=== PATIENT | female | born 1980 | race Caucasian/White ===

== ENCOUNTER 2017-03-28 09:27 | Emergency (ER) | payer OTHER ==
[~2017-03-28] VITALS: Ht 162.6 cm; Wt 80.0 kg
[~2017-03-28 09:27] MED LIST: BREX1TAB4 PO; GABA300C5 PO; HYDR1CAP30 PO; HYDR50CA PO; QUET5TAB PO
[2017-03-28] MEDS ORDERED: SODIUM CHLORIDE 0.9% FLUSH 10 ML FLUSH IVF PRN (09:45)
--- NOTE | 2017-03-28 10:10 | PD ---
HPI Chief Complaint: OD/ Ingestion Time Seen by Provider: 09:39 Travel History International Travel<30 days: No Contact w/Intl Traveler<30days: No Traveled to known affect area: No History of Present Illness HPI 37yo F with PMH of bipolar disorder and fibromyalgia presents to the ED after taking about 15 seroquel since yesterday at 10pm. Pt states that she wanted to sleep so kept taking the seroquel. Pt lives in [facility] and he roommate for EVAC because she seemed lethargic. EVAC gave 0.8mg of narcan with not much of a response but pt was awake and alert when she arrived in the ED. Pt denies any suicidal ideations. PFSH Past Medical History Anxiety: Yes Heart Rhythm Problems: No Cancer: No Cardiovascular Problems: No High Cholesterol: No Chest Pain: No Congestive Heart Failure: No Diabetes: No Diminished Hearing: No Fibromyalgia: Yes Gastrointestinal Disorders: Yes (ULCERATIVE COLITIS) GERD: Yes Genitourinary: Yes Hypertension: No Immune Disorder: No Implanted Vascular Access Dvce: No Musculoskeletal: Yes (HX OF FIBROMYLALGIA.) Neurologic: Yes Psychiatric: Yes Reproductive: No Respiratory: No Immunizations Current: Yes Seizures: Yes ?: Unknown LMP: 03/26/17 : 4 Para: 1 Miscarriage: 1 : 2 Past Surgical History Section: Yes Gynecologic Surgery: Yes (C SECTION) Other Surgery: Yes (CELLULITIS REMOVAL RIGHT HIP) Social History Alcohol Use: Yes (occasionally) Tobacco Use: Yes (1 ppd) Substance Use: No Allergies-Medications (Allergen,Severity, Reaction): Coded Allergies: *MDRO Multi-Drug Resistant Organism (Verified Allergy, Unknown, 09/27/16) MRSA 2013 MRSA arm wound 12/2014, finger 07/2015. Reported Meds & Prescriptions Reported Meds & Active Scripts Active Reported Benztropine Mesylate 2 Mg/2 Ml Vial 1 Mg PO BID Vistaril (Hydroxyzine Pamoate) 50 Mg Cap 100 Mg PO HS Vistaril (Hydroxyzine Pamoate) 50 Mg Cap 50 Mg PO TID Prazosin (Prazosin HCl) 2 Mg Cap 2 Mg PO HS Quetiapine (Quetiapine Fumarate) 50 Mg Tab 200 Mg PO HS Rexulti (Brexpiprazole) 2 Mg Tab 3 Mg PO DAILY Gabapentin 300 Mg Cap 600 Mg PO TID Review of Systems Except as stated in HPI: all other systems reviewed are Neg Physical Exam Narrative GENERAL: 37yo F not in distress. SKIN: Focused skin assessment warm/dry. HEAD: Atraumatic. Normocephalic. EYES: Pupils equal and round at 4mm bilaterally. No scleral icterus. No injection or drainage. ENT: No nasal bleeding or discharge. Mucous membranes pink and moist. NECK: Trachea midline. No JVD. CARDIOVASCULAR: Regular rate and rhythm. No murmur appreciated. RESPIRATORY: No accessory muscle use. Clear to auscultation. Breath sounds equal bilaterally. GASTROINTESTINAL: Abdomen soft, non-tender, nondistended. MUSCULOSKELETAL: No obvious deformities. No clubbing. No cyanosis. No edema. NEUROLOGICAL: Easily arousable but becomes sleepy. No obvious cranial nerve deficits. Motor grossly within normal limits. Sensations intact. Data Data Last Documented VS Vital Signs Date Time Temp Pulse Resp B/P Pulse Ox O2 Delivery O2 Flow Rate FiO2 03/28/17 18:13 95 18 119/83 99 Room Air Orders Electrocardiogram (03/28/17 09:39) Basic Metabolic Panel (Bmp) (03/28/17 09:39) Complete Blood Count With Diff (03/28/17 09:39) Prothrombin Time / Inr (Pt) (03/28/17 09:39) Act Partial Throm Time (Ptt) (03/28/17 09:39) Urinalysis - C+S If Indicated (03/28/17 09:39) Iv Access Insert/Monitor (03/28/17 09:39) Ecg Monitoring (03/28/17 09:39) Oximetry (03/28/17 09:39) Sodium Chloride 0.9% Flush (Ns Flush) (03/28/17 09:45) Drug Screen, Random Urine (03/28/17 09:39) Alcohol (Ethanol) (03/28/17 09:39) Salicylates (Aspirin) (03/28/17 09:39) Tylenol (Acetaminophen) (03/28/17 09:39) Call Poison Control (03/28/17 09:40) Hepatic Functional Panel (03/28/17 11:09) Bhcg Screen Qualitative (03/28/17 11:09) Electrocardiogram (03/28/17 ) Tylenol (Acetaminophen) (03/28/17 13:27) Salicylates (Aspirin) (03/28/17 13:27) Psych Screen (03/28/17 17:13) Labs Laboratory Tests Test 03/28/17 03/28/17 10:00 13:45 White Blood Count 13.1 TH/MM3 Red Blood Count 4.78 MIL/MM3 Hemoglobin 13.7 GM/DL Hematocrit 40.3 % Mean Corpuscular Volume 84.3 FL Mean Corpuscular Hemoglobin 28.6 PG Mean Corpuscular Hemoglobin 33.9 % Concent Red Cell Distribution Width 15.3 % Platelet Count 258 TH/MM3 Mean Platelet Volume 8.1 FL Neutrophils (%) (Auto) 74.8 % Lymphocytes (%) (Auto) 15.3 % Monocytes (%) (Auto) 7.4 % Eosinophils (%) (Auto) 2.1 % Basophils (%) (Auto) 0.4 % Neutrophils # (Auto) 9.8 TH/MM3 Lymphocytes # (Auto) 2.0 TH/MM3 Monocytes # (Auto) 1.0 TH/MM3 Eosinophils # (Auto) 0.3 TH/MM3 Basophils # (Auto) 0.1 TH/MM3 CBC Comment DIFF FINAL Differential Comment Prothrombin Time 10.0 SEC Prothromb Time International 0.9 RATIO Ratio Activated Partial 30.2 SEC Thromboplast Time Urine Color LIGHT-YELLOW Urine Turbidity CLEAR Urine pH 5.5 Urine Specific [place] 1.007 Urine Protein NEG mg/dL Urine Glucose (UA) NEG mg/dL Urine Ketones NEG mg/dL Urine Occult Blood NEG Urine Nitrite NEG Urine Bilirubin NEG Urine Urobilinogen LESS THAN 2.0 MG/DL Urine Leukocyte Esterase NEG Urine RBC LESS THAN 1 /hpf Urine WBC 1 /hpf Urine Squamous Epithelial 1 /hpf Cells Urine Bacteria RARE /hpf Urine Mucus FEW /lpf Microscopic Urinalysis Comment CULT NOT INDICATED Sodium Level 140 MEQ/L Potassium Level 4.2 MEQ/L Chloride Level 109 MEQ/L Carbon Dioxide Level 21.3 MEQ/L Anion Gap 10 MEQ/L Blood Urea Nitrogen 14 MG/DL Creatinine 0.92 MG/DL Estimat Glomerular Filtration 68 ML/MIN Rate Random Glucose 98 MG/DL Calcium Level 9.2 MG/DL Total Bilirubin 0.3 MG/DL Direct Bilirubin LESS THAN 0.1 MG/DL Indirect Bilirubin 0.2 MG/DL Aspartate Amino Transf 30 U/L (AST/SGOT) Alanine Aminotransferase 31 U/L (ALT/SGPT) Alkaline Phosphatase 88 U/L Total Protein 7.7 GM/DL Albumin 3.7 GM/DL Beta HCG, Qualitative LESS THAN 1 MIU/ML Salicylates Level 3.2 MG/DL 3.5 MG/DL Urine Opiates Screen NEG Acetaminophen Level LESS THAN 2.0 LESS THAN 2.0 MCG/ML MCG/ML Urine Barbiturates Screen NEG Urine Amphetamines Screen NEG Urine Benzodiazepines Screen NEG Urine Cocaine Screen NEG Urine Cannabinoids Screen NEG Ethyl Alcohol Level LESS THAN 3 MG/DL MDM Medical Decision Making Medical Screen Exam Complete: Yes Emergency Medical Condition: Yes Interpretation(s) EKG: NSR 99bpm. Normal axis. No ST segment elevation or depression. Narrow QRS. [id number]. LVH. TWI III. Repeat EKG: NSR 87bpm. Normal axis. QTc 420ms. Narrow QRS. Differential Diagnosis Overdose on seroquel vs. polysubstance abuse vs. bipolar disorder Narrative Course 37yo F here because she took about 15 pills of her seroquel since 10pm last night. Pt is sleepy but arousable and follows command. Labs reviewed, mild leukocytosis at 13.1. BMP unremarkable. Acetaminophen and alcohol negative. Salicylate 3.2. Utox negative. Poison control called and recommend adding LFTs and bHCG as well as repeat EKG. UA negative. negative. LFTs negative. Repeat acetaminophen less than 2.0. Repeat salicylate 3.5. Pt denies any suicidal ideation or homicidal ideation. However, states she has bipolar disorder and depression and sees things and talks to herself. Her behavior is a bit bizarre. Will get psych to evaluate her. Pt is medically clear for psych evaluation. Diagnosis Primary Impression: Overdose Qualified Code: T50.901A - Overdose, accidental or unintentional, initial encounter Andressa Mccord DO Mar 28, 2017 10:10
[2017-03-28 10:17] LABS: AUTOMATED NEUTROPHIL # 9.8 TH/MM3 (1.8-7.7); BASOPHIL # 0.1 TH/MM3 (0-0.2); BASOPHIL % 0.4 % (0.0-2.0); EOSINOPHIL # 0.3 TH/MM3 (0-0.4); EOSINOPHIL % 2.1 % (0.0-4.0); HEMATOCRIT 40.3 % (35.0-46.0); HEMO FLAGS DIFF FINAL; LYMPH % 15.3 % (9.0-44.0); MEAN CELL VOLUME 84.3 FL (80.0-100.0); MEAN CORPUSCULAR HEMOGLOBIN 28.6 PG (27.0-34.0); MEAN CORPUSCULAR HGB CONC 33.9 % (32.0-36.0); MONO % 7.4 % (0.0-8.0); NEUT % 74.8 % (16.0-70.0); PLATELET COUNT 258 TH/MM3 (150-450); RED BLOOD COUNT 4.78 MIL/MM3 (4.00-5.30); RED CELL DISTRIBUTION WIDTH 15.3 % (11.6-17.2); WHITE BLOOD COUNT 13.1 TH/MM3 (4.0-11.0)
[2017-03-28 10:36] LABS: BACTERIA, URINE RARE /hpf; BLOOD, URINE NEG (NEG); COMMENT (UR) CULT NOT INDICATED; CULTURE IF INDICATED CULT NOT INDICATED; GLUCOSE,URINE NEG (NEG); KETONE, URINE NEG (NEG); MUCUS URINE FEW /lpf (OCC); NITRITE,URINE NEG (NEG); PH, URINE 5.5 (5.0-8.5); SQUAMOUS EPITHELIAL CELL URINE 1 /hpf (0-5); URINE COLOR LIGHT-YELLOW (YELLW/STRAW)
[2017-03-28 10:38] LABS: APTT (PATIENT) 30.2 SEC (24.3-30.1); INTERNATIONAL NORMALIZED RATIO 0.9 RATIO
[2017-03-28 10:44] LABS: ACETAMINOPHEN LESS THAN 2.0 MCG/ML (10.0-30.0); ANION GAP 10 MEQ/L (5-15); BICARBONATE 21.3 MEQ/L (21.0-32.0); BLOOD UREA NITROGEN 14 MG/DL (7-18); CHLORIDE 109 MEQ/L (98-107); GLOMERULAR FILTRATION RATE 68 ML/MIN (>89); POTASSIUM 4.2 MEQ/L (3.5-5.1); SODIUM (NA) 140 MEQ/L (136-145)
[2017-03-28] MEDS ORDERED: VIST50CA PO ×2 (10:44)
[2017-03-28] MEDS ORDERED: BENZ1INJ2 PO (10:44)
[2017-03-28] MEDS ORDERED: PRAZ2CAP PO (10:44)
[2017-03-28 10:59] LABS: AMPHETAMINE, URINE NEG (NEG); BARBITURATES, URINE NEG (NEG); COCAINE, URINE NEG (NEG)
[2017-03-28 11:30] VITALS: BP 111/75; PULSE 72; O2SAT 100
[2017-03-28 11:40] VITALS: O2SAT 100
[2017-03-28 12:23] LABS: ALKALINE PHOSPHATASE 88 U/L (45-117); TOTAL BILIRUBIN ADULT 0.3 MG/DL (0.2-1.0)
[2017-03-28 12:24] LABS: BHCG SCREEN QUALITATIVE LESS THAN 1 MIU/ML (0-5)
[2017-03-28 12:27] LABS: ALT (GPT) 31 U/L (10-53); AST (GOT) 30 U/L (15-37); INDIRECT BILIRUBIN 0.2 MG/DL (0.0-0.8)
[2017-03-28 14:39] VITALS: BP 117/76; PULSE 82; RESP 16; O2SAT 100
[2017-03-28 16:27] VITALS: BP 115/75; PULSE 87; RESP 16; O2SAT 97
--- NOTE | 2017-03-28 16:54 | EKG ---
Date Performed: 03/28/2017 Time Performed: 14:07:18 PTAGE: 37 years EKG: Sinus rhythm NORMAL ECG PREVIOUS TRACING : 03/28/2017 10.42 No significant change from previous tracing noted. DOCTOR: Raj Fernández Interpretating Date/Time 03/28/2017 16:50:04
--- NOTE | 2017-03-28 17:14 | EKG ---
Date Performed: 03/28/2017 Time Performed: 10:42:08 PTAGE: 37 years EKG: Sinus rhythm VOLTAGE CRITERIA FOR LVH ABNORMAL ECG PREVIOUS TRACING : 05/10/1993 06.13 Compared to previous tracing. nonspecific ST abnormality is no longer evident, minimal voltage criteria for LVH is now present. DOCTOR: Raj Fernández Interpretating Date/Time 03/28/2017 17:09:09
[2017-03-28 18:13] VITALS: BP 119/83; PULSE 84; PULSE 95; RESP 18; O2SAT 98; O2SAT 99
== END 2017-03-28 21:47 | disposition home or self-care (01) ==
LOC: NEPE 09:27 → NEPJ 21:47
DX: T43.594A Poisoning by other antipsychotics and neuroleptics, undetermined, initial encounter (principal); R94.31 Abnormal electrocardiogram [ECG] [EKG]; M79.7 Fibromyalgia; F31.9 Bipolar disorder, unspecified; F17.210 Nicotine dependence, cigarettes, uncomplicated; Y92.009 Unspecified place in unspecified non-institutional (private) residence as the place of occurrence of the external cause
CPT/HCPCS: 80048; 80076; 80307; 81001; 84703; 85025; 85610; 85730; 93005; 99284

== ENCOUNTER 2017-05-20 18:05 | Emergency (ER) | payer OTHER ==
[~2017-05-20] VITALS: Ht 162.6 cm; Wt 60.0 kg
[~2017-05-20 18:05] MED LIST changes: +BENZ1INJ2 PO; -HYDR1CAP30 PO; -HYDR50CA PO; +PRAZ2CAP PO; +VIST50CA PO
[2017-05-20 18:14] VITALS: BP 152/92; PULSE 114; RESP 16; TEMP 98.1; O2SAT 95
[2017-05-20 18:21] VITALS: BP 124/76; PULSE 117; RESP 16; O2SAT 95
--- NOTE | 2017-05-20 18:36 | PD ---
HPI Chief Complaint: Altered Mental Status Time Seen by Provider: 18:15 Travel History International Travel<30 days: No Contact w/Intl Traveler<30days: No Traveled to known affect area: No History of Present Illness HPI The patient was seen and examined in the presence of the nurse. This patient is sometimes homeless and sometimes living with a friend. She went to a friend' s to do laundry and that friend called paramedics when she noticed the patient was acting drowsy and sedated and confused. Patient has history of bipolar and fibromyalgia. She was here in March with an intentional overdose of Seroquel. She has limited ability to provide history given her altered mental status. She does deny any overdose or suicidal intent. Severity is moderate. Duration unknown. No alleviating factors. PFSH Past Medical History Anxiety: Yes Heart Rhythm Problems: No Cancer: No Cardiovascular Problems: No High Cholesterol: No Chest Pain: No Congestive Heart Failure: No Diabetes: No Diminished Hearing: No Fibromyalgia: Yes Gastrointestinal Disorders: Yes (ULCERATIVE COLITIS) GERD: Yes Genitourinary: Yes Hypertension: No Immune Disorder: No Implanted Vascular Access Dvce: No Musculoskeletal: Yes (HX OF FIBROMYLALGIA.) Neurologic: Yes Psychiatric: Yes Reproductive: No Respiratory: No Immunizations Current: Yes Seizures: Yes Tetanus Vaccination: > 5 Years Influenza Vaccination: No ?: Unknown : 4 Para: 1 Miscarriage: 1 : 2 Past Surgical History Section: Yes Gynecologic Surgery: Yes (C SECTION) Other Surgery: Yes (CELLULITIS REMOVAL RIGHT HIP) Social History Alcohol Use: Yes (occasionally) Tobacco Use: Yes (1 ppd) Substance Use: Yes Allergies-Medications (Allergen,Severity, Reaction): Coded Allergies: *MDRO Multi-Drug Resistant Organism (Verified Allergy, Unknown, 05/20/17) MRSA 2013 MRSA arm wound 12/2014, finger 07/2015. Reported Meds & Prescriptions Reported Meds & Active Scripts Active Reported Benztropine Mesylate 2 Mg/2 Ml Vial 1 Mg PO BID Vistaril (Hydroxyzine Pamoate) 50 Mg Cap 100 Mg PO HS Vistaril (Hydroxyzine Pamoate) 50 Mg Cap 50 Mg PO TID Prazosin (Prazosin HCl) 2 Mg Cap 2 Mg PO HS Quetiapine (Quetiapine Fumarate) 50 Mg Tab 200 Mg PO HS Rexulti (Brexpiprazole) 2 Mg Tab 3 Mg PO DAILY Gabapentin 300 Mg Cap 600 Mg PO TID Review of Systems ROS Limitations: Clinical Condition, Altered Mental Status, Poor Historian Physical Exam Narrative GENERAL: Well-nourished, well-developed patient in no apparent distress. SKIN: Focused skin assessment reveals no rash and nodules. Skin is Warm and dry. HEAD: Atraumatic. Normocephalic. EYES: Pupils equal and round. No scleral icterus. No injection or drainage. ENT: No nasal bleeding or discharge. Mucous membranes pink and moist. NECK: Trachea midline. No JVD. No meningeal signs CARDIOVASCULAR: Regular rate and rhythm. No murmur appreciated. RESPIRATORY: No accessory muscle use. Clear to auscultation. Breath sounds equal bilaterally. GASTROINTESTINAL: Abdomen soft, non-tender, nondistended. Hepatic and splenic margins not palpable. MUSCULOSKELETAL: No obvious deformities. No clubbing. No cyanosis. No edema. NEUROLOGICAL: Very drowsy and sedated. No obvious cranial nerve deficits. Motor grossly within normal limits. Normal speech. PSYCHIATRIC: Difficult to assess mood and affect; insight and judgment poor . Data Data Last Documented VS Vital Signs Date Time Temp Pulse Resp B/P Pulse Ox O2 Delivery O2 Flow Rate FiO2 05/20/17 18:21 117 16 124/76 95 Room Air 05/20/17 18:14 98.1 MDM Medical Decision Making Medical Screen Exam Complete: Yes Emergency Medical Condition: Yes Medical Record Reviewed: Yes Differential Diagnosis Overdose, overmedication, intracranial hemorrhage Narrative Course I have reviewed the patient's electronic medical record. Reviewed her visit from March 28, 2017 for overdose of Seroquel This patient has significant altered mental status It seems more global and I don't see objective focal neurologic deficit Given her history will have to strongly consider overmedication or overdose I've ordered an altered mental status workup I'm seeing the patient 25 minutes before shift ends so case will be checked out to 7 PM physician to assist with disposition after workup complete Diagnosis Primary Impression: Altered mental status, unspecified Qualified Code: R41.82 - Altered mental status, unspecified altered mental status type Kit Lynch MD May 20, 2017 18:36
[2017-05-20] MEDS ORDERED: SODIUM CHLORIDE 0.9% FLUSH 5 ML FLUSH IV FLUSH PRN (18:45)
[2017-05-20 18:58] VITALS: RESP 18; O2SAT 95
--- NOTE | 2017-05-20 19:27 | RADRPT ---
EXAM DATE/TIME: 05/20/2017 19:07 [facility] COMPARISON: No previous studies available for comparison. INDICATIONS : Altered mental status. RADIATION DOSE: 32.36 CTDIvol (mGy) MEDICAL HISTORY : Non-responsive. SURGICAL HISTORY : Non-responsive. ENCOUNTER: Initial ACUITY: 1 day PAIN SCALE: Non-responsive LOCATION: cranial TECHNIQUE: Multiple contiguous axial images were obtained of the head. Using automated exposure control and adj ustment of the mA and/or kV according to patient size, radiation dose was kept as low as reasonably a chievable to obtain optimal diagnostic quality images. DICOM format image data is available electro nically for review and comparison. FINDINGS: CEREBRUM: The ventricles are normal for age. No evidence of midline shift, mass lesion, hemorrhage or acute in farction. No extra-axial fluid collections are seen. POSTERIOR FOSSA: The cerebellum and brainstem are intact. The 4th ventricle is midline. The cerebellopontine angle i s unremarkable. EXTRACRANIAL: The visualized portion of the orbits is intact. SKULL: The calvaria is intact. No evidence of skull fracture. CONCLUSION: No acute intracranial findings. Norbert Gallego MD on May 20, 2017 at 19:24 Board Certified Radiologist. This report was verified electronically.
[2017-05-20 19:47] LABS: BASOPHIL % 0.5 % (0.0-2.0); EOSINOPHIL # 0.2 TH/MM3 (0-0.4); EOSINOPHIL % 2.1 % (0.0-4.0); HEMATOCRIT 37.6 % (35.0-46.0); HEMO FLAGS DIFF FINAL; LYMPH % 20.2 % (9.0-44.0); LYMPHOCYTE # 1.7 TH/MM3 (1.0-4.8); MEAN CELL VOLUME 85.3 FL (80.0-100.0); MEAN CORPUSCULAR HEMOGLOBIN 28.7 PG (27.0-34.0); MEAN CORPUSCULAR HGB CONC 33.7 % (32.0-36.0); NEUT % 69.2 % (16.0-70.0); PLATELET COUNT 211 TH/MM3 (150-450); RED BLOOD COUNT 4.41 MIL/MM3 (4.00-5.30); RED CELL DISTRIBUTION WIDTH 14.9 % (11.6-17.2); WHITE BLOOD COUNT 8.7 TH/MM3 (4.0-11.0)
[2017-05-20 20:11] LABS: ANION GAP 11 MEQ/L (5-15); BICARBONATE 24.4 MEQ/L (21.0-32.0); BLOOD UREA NITROGEN 7 MG/DL (7-18); CHLORIDE 106 MEQ/L (98-107); GLOMERULAR FILTRATION RATE 80 ML/MIN (>89); POTASSIUM 3.4 MEQ/L (3.5-5.1); SODIUM (NA) 141 MEQ/L (136-145)
[2017-05-20 20:13] LABS: ACETAMINOPHEN LESS THAN 2.0 MCG/ML (10.0-30.0)
[2017-05-20 20:26] LABS: ALCOHOL LESS THAN 3 MG/DL (0-5)
--- NOTE | 2017-05-20 21:39 | PD ---
Physical Exam Narrative Patient signed out to me by Dr. Jacob. Please see his documentation for complete details. Briefly, patient is a 37-year-old female that was not acting normally, so her roommate called 911. She was given a dose of Ativan for some sort of myoclonic movement well with EMS that they thought was a seizure. She has been here in the emergency department, with no seizure activity. She is still acting very strangely. She hallucinates things that are not present in the room. She also admits to wanting to hurt herself. Exam shows no abnormalities. Heart is regular rate and rhythm, lungs are clear to auscultation. Data Data Last Documented VS Vital Signs Date Time Temp Pulse Resp B/P Pulse Ox O2 Delivery O2 Flow Rate FiO2 05/21/17 02:18 98.2 100 18 124/81 96 05/20/17 18:58 Room Air Orders Electrocardiogram (05/20/17 18:44) Basic Metabolic Panel (Bmp) (05/20/17 18:44) Complete Blood Count With Diff (05/20/17 18:44) Ct Brain W/O Iv Contrast(Rout) (05/20/17 18:44) Blood Glucose (05/20/17 18:44) Ecg Monitoring (05/20/17 18:44) Iv Access Insert/Monitor (05/20/17 18:44) Cath For Specimen (05/20/17 18:44) Oximetry (05/20/17 18:44) Sodium Chloride 0.9% Flush (Ns Flush) (05/20/17 18:45) Drug Screen, Random Urine (05/20/17 18:44) Alcohol (Ethanol) (05/20/17 18:44) Tylenol (Acetaminophen) (05/20/17 18:44) Salicylates (Aspirin) (05/20/17 18:44) Ed Urine Pregnancytest Poc (05/20/17 18:44) Psych Screen (05/20/17 21:38) Diet Regular Basic (05/21/17 Breakfast) Labs Laboratory Tests Test 05/20/17 05/20/17 05/20/17 18:25 21:00 23:05 White Blood Count 8.7 TH/MM3 Red Blood Count 4.41 MIL/MM3 Hemoglobin 12.7 GM/DL Hematocrit 37.6 % Mean Corpuscular Volume 85.3 FL Mean Corpuscular Hemoglobin 28.7 PG Mean Corpuscular Hemoglobin 33.7 % Concent Red Cell Distribution Width 14.9 % Platelet Count 211 TH/MM3 Mean Platelet Volume 8.7 FL Neutrophils (%) (Auto) 69.2 % Lymphocytes (%) (Auto) 20.2 % Monocytes (%) (Auto) 8.0 % Eosinophils (%) (Auto) 2.1 % Basophils (%) (Auto) 0.5 % Neutrophils # (Auto) 6.0 TH/MM3 Lymphocytes # (Auto) 1.7 TH/MM3 Monocytes # (Auto) 0.7 TH/MM3 Eosinophils # (Auto) 0.2 TH/MM3 Basophils # (Auto) 0.0 TH/MM3 CBC Comment DIFF FINAL Differential Comment Sodium Level 141 MEQ/L Potassium Level 3.4 MEQ/L Chloride Level 106 MEQ/L Carbon Dioxide Level 24.4 MEQ/L Anion Gap 11 MEQ/L Blood Urea Nitrogen 7 MG/DL Creatinine 0.80 MG/DL Estimat Glomerular Filtration 80 ML/MIN Rate Random Glucose 97 MG/DL Calcium Level 8.2 MG/DL Acetaminophen Level LESS THAN 2.0 MCG/ML Ethyl Alcohol Level LESS THAN 3 MG/DL Salicylates Level LESS THAN 1.7 MG/DL Urine Opiates Screen NEG Urine Barbiturates Screen NEG Urine Amphetamines Screen POS Urine Benzodiazepines Screen NEG Urine Cocaine Screen POS Urine Cannabinoids Screen NEG MDM Supervised Visit with ZACH: No Narrative Course Labs show no acute abnormalities. CT of her head shows no acute abnormalities. Patient placed under Junior act. She will be medically cleared for psychiatric screening. Disposition per psychiatry. Diagnosis Primary Impression: Altered mental status, unspecified Qualified Code: R41.82 - Altered mental status, unspecified altered mental status type Condition: Stable Gladis Falcno MD May 20, 2017 21:39
[2017-05-21 02:18] VITALS: BP 124/81; PULSE 100; RESP 18; TEMP 98.2; O2SAT 96
[2017-05-21 07:08] VITALS: BP 129/85; PULSE 79; RESP 18; O2SAT 100
--- NOTE | 2017-05-21 09:55 | PD.PSY.CON ---
Provisional Diagnosis Admission Date [place] I. Substance induced mood disorder, amphetamines and cocaine use disorder, several reports of bipolar [place] II. Deferred [place] III. Fibromyalgia History of Present Illness Service Psychiatry Consult Requested By Reason for Consult Psychotic behavior Primary Care Physician Unknown HPI The patient is a 37-year-old woman, domiciled in a fdc, , unemployed, with self-reported psychiatric history of bipolar disorder, cocaine and IV amphetamine use disorder, no previous psychiatric hospitalizations, no medications, no previous suicidal attempts, self reported medical history of fibromyalgia, she was brought to the hospital because She went to a friend's to do laundry and that friend called paramedics when she noticed the patient was acting drowsy and sedated and confused. Junior acted due to disorganized and psychotic behavior. On psychiatric evaluation patient is calm, cooperative, a little bit restless, visibly under the influences of cocaine and amphetamine. Patient denies depressive symptoms, she denies anxiety, she says that she came to the hospital because she passed out. She denies suicidal and homicidal ideation, she denies visual and auditory hallucinations. As per nurses report, patient last night was internally preoccupied, talking to nonpresent people. But today, she is doing much better. She is oriented 3, attention deficit, no gross cognitive impairment. Patient reports the use of cocaine and amphetamines. Review of Systems Constitutional: DENIES: Diaphoretic episodes, Fatigue, Fever, Weight gain, Weight loss, Chills, Dizziness, Change in appetite, Night Sweats Endocrine: DENIES: Abnorml menstrual pattern, Heat/cold intolerance, Polydipsia , Polyuria, Polyphagia Eyes: DENIES: Blurred vision, Diplopia, Eye inflammation, Eye pain, Vision loss , Photosensitivity, Double Vision Ears, nose, mouth, throat: DENIES: Tinnitus, Hearing loss, Vertigo, Nasal discharge, Oral lesions, Throat pain, Hoarseness, Ear Pain, Running Nose, Epistaxis, Sinus Pain, Toothache, Odynophagia Respiratory: DENIES: Apneas, Cough, Snoring, Wheezing, Hemoptysis, Sputum production, Shortness of breath Cardiovascular: DENIES: Chest pain, Palpitations, Syncope, Dyspnea on Exertion , PND, Lower Extremity Edema, Orthopnea, Claudication Gastrointestinal: DENIES: Abdominal pain, Black stools, Bloody stools, Constipation, Diarrhea, Nausea, Vomiting, Difficulty Swallowing, Anorexia Musculoskeletal: DENIES: Joint pain, Muscle aches, Stiffness, Joint Swelling, Back pain, Neck pain Integumentary: DENIES: Abnormal pigmentation, Pruritus, Rash, Nail changes, Breast masses, Breast skin changes, Nipple discharge Hematologic/lymphatic: DENIES: Bruising, Lymphadenopathy Immunologic/allergic: DENIES: Eczema, Urticaria Neurologic: DENIES: Abnormal gait, Headache, Localized weakness, Paresthesias, Seizures, Speech Problems, Tremor, Poor Balance Psychiatric: DENIES: Anxiety, Confusion, Mood changes, Depression, Hallucinations, Agitation, Suicidal Ideation, Homicidal Ideation, Delusions Past Family Social History Coded Allergies: *MDRO Multi-Drug Resistant Organism (Verified Allergy, Unknown, 05/20/17) MRSA 2013 MRSA arm wound 12/2014, finger 07/2015. Reported Medications Benztropine Mesylate 2 Mg/2 Ml Vial1 Mg PO BID 03/28/17 Hydroxyzine Pamoate (Vistaril)50 Mg [id number] Mg PO HS Ref 0 03/28/17 Hydroxyzine Pamoate (Vistaril)50 Mg Cap50 Mg PO TID Ref 0 03/28/17 Prazosin 2 Mg Cap2 Mg PO HS #60 CAP Ref 0 03/28/17 Quetiapine 50 Mg [id number] Mg PO HS #60 TAB Ref 0 09/27/16 Brexpiprazole (Rexulti)2 Mg Tab3 Mg PO DAILY 09/27/16 Gabapentin 300 Mg [id number] Mg PO TID #90 CAP Ref 0 09/27/16 Current Medications Medications (Trade) Dose Ordered Sig/Patricia Route Start Time Stop Time Status Last Admin (NS Flush) 2 ml UNSCH PRN IV FLUSH 05/20/17 18:45 Family History Denies family psychiatric history Social History Patient was born and raised in [facility], she lives in a fdc, she is , has a daughter a 15 years old who lives with her father, her highest level of education is eighth grade Patient's Strengths (min. 2) Verbal communication Physical Exam Vital Signs Vital Signs Date Time Temp Pulse Resp B/P Pulse Ox O2 Delivery O2 Flow Rate FiO2 05/21/17 07:08 79 18 129/85 100 05/21/17 02:18 98.2 05/20/17 18:58 Room Air Lab Results Labs Laboratory Tests Test 05/20/17 05/20/17 05/20/17 18:25 21:00 23:05 White Blood Count 8.7 TH/MM3 Red Blood Count 4.41 MIL/MM3 Hemoglobin 12.7 GM/DL Hematocrit 37.6 % Mean Corpuscular Volume 85.3 FL Mean Corpuscular Hemoglobin 28.7 PG Mean Corpuscular Hemoglobin 33.7 % Concent Red Cell Distribution Width 14.9 % Platelet Count 211 TH/MM3 Mean Platelet Volume 8.7 FL Neutrophils (%) (Auto) 69.2 % Lymphocytes (%) (Auto) 20.2 % Monocytes (%) (Auto) 8.0 % Eosinophils (%) (Auto) 2.1 % Basophils (%) (Auto) 0.5 % Neutrophils # (Auto) 6.0 TH/MM3 Lymphocytes # (Auto) 1.7 TH/MM3 Monocytes # (Auto) 0.7 TH/MM3 Eosinophils # (Auto) 0.2 TH/MM3 Basophils # (Auto) 0.0 TH/MM3 CBC Comment DIFF FINAL Differential Comment Sodium Level 141 MEQ/L Potassium Level 3.4 MEQ/L Chloride Level 106 MEQ/L Carbon Dioxide Level 24.4 MEQ/L Anion Gap 11 MEQ/L Blood Urea Nitrogen 7 MG/DL Creatinine 0.80 MG/DL Estimat Glomerular Filtration 80 ML/MIN Rate Random Glucose 97 MG/DL Calcium Level 8.2 MG/DL Acetaminophen Level LESS THAN 2.0 MCG/ML Ethyl Alcohol Level LESS THAN 3 MG/DL Salicylates Level LESS THAN 1.7 MG/DL Urine Opiates Screen NEG Urine Barbiturates Screen NEG Urine Amphetamines Screen POS Urine Benzodiazepines Screen NEG Urine Cocaine Screen POS Urine Cannabinoids Screen NEG Mental Status Examination Appearance woman, disheveled, cooperative, anxious Speech: Unremarkable Orientation: x3 Memory: Unremarkable Thought Process: Logical Thought Content: Unremarkable Hallucination Type: None Suicidal Ideation: No Previous Suicide Attempts: No Homicidal Ideation: No Previous Homicide Attempts: No Judgment: WNL Mood: Appropriate Motor Activity: Normal gait Assessment & Plan Problem List: (1) Substance-induced psychotic disorder with hallucinations Assessment & Plan: At the moment of this psychiatric evaluation the patient does not present any concerning, acute or significant symptomatology of depression, psychosis or bennett that requires psychiatric hospitalizations. Her recent erratic behavior confusion and psychosis seems to be the result of amphetamine and cocaine intoxication. At this moment patient is calm, cooperative, logical and coherent. She denies suicidal and homicidal ideation. Patient does not meet criteria for psychiatric admission at this moment. ICD Code: F19.951 Assessment & Plan Estimated LOS: days Kiko Howard MD May 21, 2017 09:55
--- NOTE | 2017-05-22 10:16 | EKG ---
Date Performed: 05/20/2017 Time Performed: 18:21:51 PTAGE: 37 years EKG: SINUS TACHYCARDIA MINIMAL VOLTAGE CRITERIA FOR LVH, CONSIDER NORMAL VARIANT MINIMAL ST DEPR ESSION ABNORMAL RHYTHM ECG Clinical correlation is recommended PREVIOUS TRACING : 03/28/2017 14.07 DOCTOR: Scot Aceves Interpretating Date/Time 05/22/2017 10:14:59
== END 2017-05-21 10:54 | disposition home or self-care (01) ==
LOC: NEPE 18:05 → NEPJ 05-21 10:54
DX: R41.82 Altered mental status, unspecified (principal); F31.9 Bipolar disorder, unspecified; R00.0 Tachycardia, unspecified; R94.31 Abnormal electrocardiogram [ECG] [EKG]; M79.7 Fibromyalgia; F41.9 Anxiety disorder, unspecified; R56.9 Unspecified convulsions; F17.200 Nicotine dependence, unspecified, uncomplicated; Z59.0 Homelessness
CPT/HCPCS: 70450; 80048; 80307; 84703; 85025; 93005; 99284

== ENCOUNTER 2017-07-24 09:36 | Emergency (ER) | payer SELFPAY ==
[~2017-07-24] VITALS: Ht 162.6 cm; Wt 80.0 kg
[2017-07-24 09:38] VITALS: BP 90/63; PULSE 130; RESP 13; TEMP 98.5; O2SAT 96
[2017-07-24] MEDS ORDERED: TRAZ100T6 PO (10:48)
[2017-07-24] MEDS ORDERED: PROT40TA PO (10:48)
--- NOTE | 2017-07-24 11:22 | PD ---
HPI Chief Complaint: Cardiac Complaint Time Seen by Provider: 11:05 Travel History International Travel<30 days: No Contact w/Intl Traveler<30days: No Traveled to known affect area: No History of Present Illness HPI 37 YO F with PMH of bipolar, MRSA presents to the ED for evaluation after being tachycardic and hypotensive when vitals were taken at [facility] today. The patient states that she is an IV drug user. Last use 2 days ago, mixture of heroin and methamphetamine. She states that she "stuck myself to " in the left hand in an effort to get high. On presentation the patient denies somatic complaints. She denies F/C/N/V. She denies CP, palpitations, SOB, cough, abdominal pain, changes in bowel habits, dysuria, back pain. She denies numbness , tingling, weakness, limitations to ROM of the LUE. She endorses compliance with her daily medications. She is a current smoker. PFSH Past Medical History Anxiety: Yes Heart Rhythm Problems: No Cancer: No Cardiovascular Problems: No High Cholesterol: No Chest Pain: No Congestive Heart Failure: No Diabetes: No Diminished Hearing: No Fibromyalgia: Yes Gastrointestinal Disorders: Yes (ULCERATIVE COLITIS) GERD: Yes Genitourinary: Yes Hypertension: No Immune Disorder: No Implanted Vascular Access Dvce: No Musculoskeletal: Yes (HX OF FIBROMYLALGIA.) Neurologic: Yes Psychiatric: Yes Reproductive: No Respiratory: No Immunizations Current: Yes Seizures: Yes Tetanus Vaccination: > 5 Years Influenza Vaccination: No ?: Not LMP: 07/09/17 : 4 Para: 1 Miscarriage: 1 : 2 Past Surgical History Section: Yes Gynecologic Surgery: Yes (C SECTION) Other Surgery: Yes (CELLULITIS REMOVAL RIGHT HIP) Social History Alcohol Use: Yes (occasionally) Tobacco Use: Yes (1 ppd) 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 Reported Meds & Prescriptions Reported Meds & Active Scripts Active Macrobid (Nitrofurantoin Monoh/Nitrofur Macro) 100 Mg Cap 100 Mg PO BID 7 Days Bactrim DS (Sulfamethoxazole-Trimethoprim) 800-160 Mg Tab 1 Tab PO BID Reported Trazodone (Trazodone HCl) 100 Mg Tablet 100 Mg PO HS Protonix (Pantoprazole Sodium) 40 Mg Tab 40 Mg PO DAILY Vistaril (Hydroxyzine Pamoate) 50 Mg Cap 50 Mg PO TID Prazosin (Prazosin HCl) 2 Mg Cap 2 Mg PO HS Rexulti (Brexpiprazole) 2 Mg Tab 3 Mg PO DAILY Gabapentin 300 Mg Cap 300 Mg PO TID Review of Systems Except as stated in HPI: all other systems reviewed are Neg Physical Exam Narrative GENERAL: Well-nourished, well-developed white female in no acute distress. SKIN: Focused skin assessment warm/dry. Multiple pinpoint crusts of the left wrist and forearm with localized erythema, mild edema. No warmth. No induration , fluctuance. No cellulitic streaking. No epitrochlear LAD. HEAD: Normocephalic. EYES: No scleral icterus. No injection or drainage. NECK: Supple, trachea midline. No JVD or lymphadenopathy. CARDIOVASCULAR: Regular rate and rhythm without murmurs, gallops, or rubs. RESPIRATORY: Breath sounds equal bilaterally. No accessory muscle use. GASTROINTESTINAL: Abdomen soft, non-tender, nondistended. MUSCULOSKELETAL: No cyanosis, or edema. FOCUSED LEFT UPPER EXTREMITY EXAM: 2+ DP pulse. Compartments are soft. Patient retains full, active, painless ROM of the hand, wrist and forearm. Strong thumb to finger opposition on all digits. Neurovascularly intact. BACK: Nontender without obvious deformity. No CVA tenderness. Data Data Last Documented VS Vital Signs Date Time Temp Pulse Resp B/P (MAP) Pulse Ox O2 Delivery O2 Flow Rate FiO2 07/24/17 11:31 18 99 Room Air 07/24/17 11:29 116 07/24/17 09:38 98.5 Orders Orders Electrocardiogram (07/24/17 ) Complete Blood Count With Diff (07/24/17 11:06) Comprehensive Metabolic Panel (07/24/17 11:06) Urinalysis - C+S If Indicated (07/24/17 11:06) Electrocardiogram (07/24/17 11:06) Ed Urine Pregnancytest Poc (07/24/17 11:06) Drug Screen, Random Urine (07/24/17 11:06) Blood Culture (07/24/17 11:24) Iv Access Insert/Monitor (07/24/17 11:24) Lactic Acid (07/24/17 11:24) ^ Insert Iv (07/24/17 11:24) Ecg Monitoring (07/24/17 11:24) Oximetry (07/24/17 11:24) Sodium Chloride 0.9% Flush (Ns Flush) (07/24/17 11:30) Sodium Chlor 0.9% 1000 Ml Inj (Ns 1000 M (07/24/17 11:45) C-Reactive Protein (Crp) (07/24/17 12:00) Westergren Sedimentation Rate (07/24/17 12:00) Urine Culture (07/24/17 11:10) Potassium Chloride (Kcl) (07/24/17 12:15) Nitrofurantoin Monohyd Macrocr (Macrobid (07/24/17 12:15) Sulfamet-Trimeth Ds 800-160 Mg (Bactrim (07/24/17 12:15) Ed Discharge Order (07/24/17 13:26) Labs Laboratory Tests Test 07/24/17 11:10 07/24/17 11:50 White Blood Count 9.8 TH/MM3 Red Blood Count 4.65 MIL/MM3 Hemoglobin 13.7 GM/DL Hematocrit 40.1 % Mean Corpuscular Volume 86.3 FL Mean Corpuscular Hemoglobin 29.5 PG Mean Corpuscular Hemoglobin Concent 34.2 % Red Cell Distribution Width 14.2 % Platelet Count 194 TH/MM3 Mean Platelet Volume 9.2 FL Neutrophils (%) (Auto) 70.6 % Lymphocytes (%) (Auto) 20.7 % Monocytes (%) (Auto) 7.0 % Eosinophils (%) (Auto) 1.3 % Basophils (%) (Auto) 0.4 % Neutrophils # (Auto) 6.9 TH/MM3 Lymphocytes # (Auto) 2.0 TH/MM3 Monocytes # (Auto) 0.7 TH/MM3 Eosinophils # (Auto) 0.1 TH/MM3 Basophils # (Auto) 0.0 TH/MM3 CBC Comment DIFF FINAL Differential Comment Erythrocyte Sedimentation Rate 31 mm/hr Urine Color LIGHT-YELLOW Urine Turbidity HAZY Urine pH 6.5 Urine Specific [place] 1.005 Urine Protein NEG mg/dL Urine Glucose (UA) NEG mg/dL Urine Ketones NEG mg/dL Urine Occult Blood MOD Urine Nitrite NEG Urine Bilirubin NEG Urine Urobilinogen LESS THAN 2.0 MG/DL Urine Leukocyte Esterase SMALL Urine RBC 4 /hpf Urine WBC 5 /hpf Urine Squamous Epithelial Cells 11 /hpf Urine Amorphous Sediment RARE Urine Bacteria MOD /hpf Microscopic Urinalysis Comment CULTURE INDICATED Blood Urea Nitrogen 8 MG/DL Creatinine 0.76 MG/DL Random Glucose 125 MG/DL Total Protein 7.7 GM/DL Albumin 3.7 GM/DL Calcium Level 9.3 MG/DL Alkaline Phosphatase 70 U/L Aspartate Amino Transf (AST/SGOT) 513 U/L Alanine Aminotransferase (ALT/SGPT) 244 U/L Total Bilirubin 0.4 MG/DL Sodium Level 137 MEQ/L Potassium Level 3.1 MEQ/L Chloride Level 102 MEQ/L Carbon Dioxide Level 23.5 MEQ/L Anion Gap 12 MEQ/L Estimat Glomerular Filtration Rate 85 ML/MIN C-Reactive Protein 2.80 MG/DL Urine Opiates Screen NEG Urine Barbiturates Screen NEG Urine Amphetamines Screen POS Urine Benzodiazepines Screen NEG Urine Cocaine Screen POS Urine Cannabinoids Screen NEG Lactic Acid Level 1.5 mmol/L MDM Medical Decision Making Medical Screen Exam Complete: Yes Emergency Medical Condition: Yes Differential Diagnosis cellulitis versus sepsis versus compartment syndrome versus UTI versus other Narrative Course 37 YO F with PMH of bipolar, MRSA presents to the ED for evaluation after being tachycardic and hypotensive when vitals were taken at [facility] today. The patient states that she is an IV drug user. Last use 2 days ago, mixture of heroin and methamphetamine. She states that she "stuck myself to " in the left hand in an effort to get high. On presentation the patient denies somatic complaints. She denies F/C/N/V, CP, palpitations, SOB, cough, abdominal pain, changes in bowel habits, dysuria, back pain, numbness, tingling, weakness, limitations to ROM of the LUE. Vitals reviewed. Heart rate 130, BP 90/63 in triage. Improved to heart rate 114, BP 121/60 in the exam room. Physical exam reveals a nontoxic-appearing white female in no acute distress. She does have evidence of an early cellulitis on the left distal upper extremity. The compartments are soft. No epitrochlear lymphadenopathy or lymphatic streaking noted. IV was established. Blood cultures were obtained. Patient was administered 1 L normal saline. CBC: WBC 9.8. Hemoglobin 13.7. CMP: Potassium 3.1. BUN 8, creatinine 0.78. AST:ALT= 513:244 Lactic acid: 1.5 CRP: 2.80 ESR: 31 Drug screen: +amphetamine. +cocaine EKG: Rate 116, sinus rhythm. Normal intervals. Normal axis. No ST changes. Reviewed by Dr. Falcon. UA: Hazy. Moderate occult blood. Small leukocyte esterase. 5 WBCs, moderate bacteria. Culture pending. I discussed the patient with Dr. Carrion who recommends Bactrim and Macrobid by mouth. Patient was administered 40mEq KCl. She was prescribed Macrobid and Bactrim DS, first doses administered in the ED. She is instructed to take all of the antibiotics as they are prescribed, even if symptoms resolve, return for worsening symptoms, otherwise follow up with the PCP. She indicated understanding of the instructions. She is agreeable with the plan of care. She is stable and discharged to [facility]. Diagnosis Primary Impression: Left arm cellulitis Additional Impression: Urinary tract infection Qualified Codes: N39.0 - Urinary tract infection, site not specified Referrals: [facility] Primary Care Physician Patient Instructions: Cellulitis (ED), General Instructions, Urinary Tract Infection in Women (ED) Additional Instructions: Rest, hydrate. Take all the antibiotics as they are prescribed, even if your symptoms resolved. In other words take all of the antibiotic pills until they are gone. Follow up with the primary care provider. Return for worsening symptoms including fever, chills, nausea, vomiting, worsening redness, warmth, streaking up the left arm. Return to the ED for any urgent or emergent medical condition. Med/Other Pt SpecificInfo: Prescription(s) given Scripts Nitrofurantoin Monohydrate Macrocrystals (Macrobid) 100 Mg Cap 100 MG PO BID for Infection for 7 Days, #14 CAP 0 Refills Prov: Manjeet Carrion MD 07/24/17 Sulfamethoxazole-Trimethoprim (Bactrim DS) 800-160 Mg Tab 1 TAB PO BID for Infection, #14 TAB 0 Refills Prov: Manjeet Carrion MD 07/24/17 Disposition: 65 DISC TO [facility] Condition: Stable Merline Fregoso Jul 24, 2017 11:22
[2017-07-24 11:29] VITALS: BP 121/68; PULSE 116; RESP 18; O2SAT 98
[2017-07-24] MEDS ORDERED: SODIUM CHLORIDE 0.9% FLUSH 10 ML FLUSH IV FLUSH PRN (11:30)
[2017-07-24 11:31] VITALS: RESP 18; O2SAT 99
[2017-07-24 11:36] LABS: AUTOMATED NEUTROPHIL # 6.9 TH/MM3 (1.8-7.7); BASOPHIL % 0.4 % (0.0-2.0); EOSINOPHIL # 0.1 TH/MM3 (0-0.4); EOSINOPHIL % 1.3 % (0.0-4.0); HEMATOCRIT 40.1 % (35.0-46.0); HEMO FLAGS DIFF FINAL; LYMPH % 20.7 % (9.0-44.0); MEAN CELL VOLUME 86.3 FL (80.0-100.0); MEAN CORPUSCULAR HEMOGLOBIN 29.5 PG (27.0-34.0); MEAN CORPUSCULAR HGB CONC 34.2 % (32.0-36.0); NEUT % 70.6 % (16.0-70.0); PLATELET COUNT 194 TH/MM3 (150-450); RED BLOOD COUNT 4.65 MIL/MM3 (4.00-5.30); RED CELL DISTRIBUTION WIDTH 14.2 % (11.6-17.2); WHITE BLOOD COUNT 9.8 TH/MM3 (4.0-11.0)
[2017-07-24] MEDS ORDERED: SODIUM CHLOR 0.9% 1000 ML INJ 1,000 ML IV ONE (11:45)
[2017-07-24 11:55] LABS: ANION GAP 12 MEQ/L (5-15); AST (GOT) 513 U/L (15-37); BICARBONATE 23.5 MEQ/L (21.0-32.0); BLOOD UREA NITROGEN 8 MG/DL (7-18); CHLORIDE 102 MEQ/L (98-107); GLOMERULAR FILTRATION RATE 85 ML/MIN (>89); POTASSIUM 3.1 MEQ/L (3.5-5.1); SODIUM (NA) 137 MEQ/L (136-145)
[2017-07-24 11:56] LABS: ALT (GPT) 244 U/L (10-53); BLOOD, URINE MOD (NEG); GLUCOSE,URINE NEG (NEG); KETONE, URINE NEG (NEG); NITRITE,URINE NEG (NEG); PH, URINE 6.5 (5.0-8.5); SQUAMOUS EPITHELIAL CELL URINE 11 /hpf (0-5); URINE COLOR LIGHT-YELLOW (YELLW/STRAW)
[2017-07-24 11:58] LABS: ALKALINE PHOSPHATASE 70 U/L (45-117); TOTAL BILIRUBIN ADULT 0.4 MG/DL (0.2-1.0)
[2017-07-24 12:00] LABS: BACTERIA, URINE MOD /hpf; COMMENT (UR) CULTURE INDICATED; CULTURE IF INDICATED CULTURE INDICATED
[2017-07-24] MEDS ORDERED: SULFAMETHOXAZOLE-TRIMETHOPRIM DS 800-160 MG TAB PO ONE (12:15)
[2017-07-24] MEDS ORDERED: POTASSIUM CHLORIDE 20 MEQ CONTROLLED RELEASE TAB PO ONE (12:15)
[2017-07-24] MEDS ORDERED: NITROFURANTOIN MONOHYD MACROCR 100 MG CAP PO ONE (12:15)
[2017-07-24] MEDS ORDERED: MACR100C2 PO (13:26)
[2017-07-24] MEDS ORDERED: BACT800T5 PO (13:26)
--- NOTE | 2017-07-24 21:34 | EKG ---
Date Performed: 07/24/2017 Time Performed: 09:57:24 PTAGE: 37 years EKG: SINUS TACHYCARDIA POSSIBLE LEFT ATRIAL ENLARGEMENT ABNORMAL RHYTHM ECG PREVIOUS TRACING : 05/20/2017 18.21 Compared to prior tracing no significant change DOCTOR: David Rashid Interpretating Date/Time 07/24/2017 21:32:32
== END 2017-07-24 14:00 ==
LOC: NEPC 09:36
DX: L03.114 Cellulitis of left upper limb (principal); N39.0 Urinary tract infection, site not specified; R00.0 Tachycardia, unspecified; I95.9 Hypotension, unspecified; R94.31 Abnormal electrocardiogram [ECG] [EKG]; F17.200 Nicotine dependence, unspecified, uncomplicated; Z79.899 Other long term (current) drug therapy; Z86.59 Personal history of other mental and behavioral disorders; Z86.14 Personal history of Methicillin resistant Staphylococcus aureus infection; Z87.39 Personal history of other diseases of the musculoskeletal system and connective tissue; Z87.19 Personal history of other diseases of the digestive system; Z87.448 Personal history of other diseases of urinary system; Z86.69 Personal history of other diseases of the nervous system and sense organs
CPT/HCPCS: 80053; 80307; 81001; 83605; 84703; 85025; 85652; 86140; 87040; 87086; 93005; 96360; 99284; J7030

== ENCOUNTER 2017-12-28 17:52 | Emergency (ER) | payer SELFPAY ==
[~2017-12-28] VITALS: Ht 162.6 cm; Wt 80.0 kg
[~2017-12-28 17:52] MED LIST changes: +BACT800T5 PO; -BENZ1INJ2 PO; +MACR100C2 PO; +PROT40TA PO; -QUET5TAB PO; +TRAZ100T10 PO
[2017-12-28 17:59] VITALS: BP 140/66; PULSE 115; RESP 20; TEMP 98.1; O2SAT 99
[2017-12-28 18:48] VITALS: BP_SYST 126; BP_SYST 209; BP_DIAS 157; BP_DIAS 59; PULSE 116; PULSE 128; RESP 19; RESP 20; TEMP 98.1; TEMP 98.7; O2SAT 100; O2SAT 97
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
[2017-12-28 19:53] LABS: AUTOMATED NEUTROPHIL # 8.1 TH/MM3 (1.8-7.7); BASOPHIL % 0.4 % (0.0-2.0); EOSINOPHIL # 0.2 TH/MM3 (0-0.4); EOSINOPHIL % 1.8 % (0.0-4.0); HEMATOCRIT 38.6 % (35.0-46.0); HEMOGLOBIN 13.1 GM/DL (11.6-15.3); LYMPH % 19.7 % (9.0-44.0); LYMPHOCYTE # 2.3 TH/MM3 (1.0-4.8); MEAN CELL VOLUME 87.1 FL (80.0-100.0); MEAN CORPUSCULAR HEMOGLOBIN 29.4 PG (27.0-34.0); MEAN CORPUSCULAR HGB CONC 33.8 % (32.0-36.0); MEAN PLATELET VOLUME 7.7 FL (7.0-11.0); MONO % 8.8 % (0.0-8.0); NEUT % 69.3 % (16.0-70.0); PLATELET COUNT 249 TH/MM3 (150-450); RED BLOOD COUNT 4.44 MIL/MM3 (4.00-5.30); RED CELL DISTRIBUTION WIDTH 14.6 % (11.6-17.2); WHITE BLOOD COUNT 11.7 TH/MM3 (4.0-11.0)
[2017-12-28 20:06] LABS: BACTERIA, URINE MOD /hpf; BILIRUBIN, URINE NEG (NEG); BLOOD, URINE NEG (NEG); GLUCOSE,URINE NEG (NEG); KETONE, URINE 10 mg/dL (NEG); NITRITE,URINE NEG (NEG); SQUAMOUS EPITHELIAL CELL URINE 13 /hpf (0-5); URINE COLOR YELLOW (YELLW/STRAW); URINE LEUKOCYTE ESTERASE NEG (NEG)
[2017-12-28 20:13] LABS: ALBUMIN 3.6 GM/DL (3.4-5.0); AST (GOT) 76 U/L (15-37); BICARBONATE 24.9 MEQ/L (21.0-32.0); BLOOD UREA NITROGEN 16 MG/DL (7-18); CALCIUM 8.9 MG/DL (8.5-10.1); CHLORIDE 97 MEQ/L (98-107); CREATININE 0.81 MG/DL (0.50-1.00); GLOMERULAR FILTRATION RATE 79 ML/MIN (>89); GLUCOSE,RANDOM 93 MG/DL (74-106); SODIUM (NA) 132 MEQ/L (136-145)
[2017-12-28 20:24] LABS: ALKALINE PHOSPHATASE 73 U/L (45-117); ALT (GPT) 27 U/L (10-53); TOTAL BILIRUBIN ADULT 0.4 MG/DL (0.2-1.0); TOTAL PROTEIN 7.4 GM/DL (6.4-8.2)
[2017-12-28 20:26] LABS: ACETAMINOPHEN LESS THAN 2.0 MCG/ML (10.0-30.0)
[2017-12-29 02:16] VITALS: BP 97/59; PULSE 113; RESP 17; O2SAT 96
[2017-12-29 06:43] VITALS: BP 105/59; PULSE 92; RESP 17; O2SAT 98
[2017-12-29 15:08] VITALS: BP 109/72; PULSE 103; RESP 18
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
[2017-12-29] MEDS ORDERED: CEPH-460 PO (15:47)
--- NOTE | 2017-12-29 15:50 | PD ---
Physical Exam Date Seen by Provider: Dec 29, 2017 Time Seen by Provider: 15:48 Narrative 37-year-old this patient previously Junior acted and medically cleared for psychiatric evaluation. During medical clearance patient was found to have a urinary tract infection. Patient has been seen by psychiatric services and deemed psychiatrically stable for discharge at this time. Patient is given a prescription for Keflex 500 mg 3 times daily for 7 days for her UTI. Urine culture is pending. Follow-up will be determined by psychiatric note. Data Data Last Documented VS Vital Signs Date Time Temp Pulse Resp B/P (MAP) Pulse Ox O2 Delivery O2 Flow Rate FiO2 12/29/17 15:08 103 18 109/72 (84) Room Air 12/29/17 06:43 98 12/28/17 18:48 98.7 Orders Orders Complete Blood Count With Diff (12/28/17 18:48) Comprehensive Metabolic Panel (12/28/17 18:48) Thyroid Stimulating Hormone (12/28/17 18:48) Urinalysis - C+S If Indicated (12/28/17 18:48) Psych Screen (12/28/17 18:48) Drug Screen, Random Urine (12/28/17 18:48) Alcohol (Ethanol) (12/28/17 18:48) Salicylates (Aspirin) (12/28/17 18:48) Tylenol (Acetaminophen) (12/28/17 18:48) Urine Culture (12/28/17 19:28) Diet Regular Basic (12/29/17 Breakfast) Diet Regular Basic (12/29/17 Lunch) Labs Laboratory Tests Test 12/28/17 19:28 White Blood Count 11.7 TH/MM3 Red Blood Count 4.44 MIL/MM3 Hemoglobin 13.1 GM/DL Hematocrit 38.6 % Mean Corpuscular Volume 87.1 FL Mean Corpuscular Hemoglobin 29.4 PG Mean Corpuscular Hemoglobin Concent 33.8 % Red Cell Distribution Width 14.6 % Platelet Count 249 TH/MM3 Mean Platelet Volume 7.7 FL Neutrophils (%) (Auto) 69.3 % Lymphocytes (%) (Auto) 19.7 % Monocytes (%) (Auto) 8.8 % Eosinophils (%) (Auto) 1.8 % Basophils (%) (Auto) 0.4 % Neutrophils # (Auto) 8.1 TH/MM3 Lymphocytes # (Auto) 2.3 TH/MM3 Monocytes # (Auto) 1.0 TH/MM3 Eosinophils # (Auto) 0.2 TH/MM3 Basophils # (Auto) 0.0 TH/MM3 CBC Comment DIFF FINAL Differential Comment Urine Color YELLOW Urine Turbidity HAZY Urine pH 6.0 Urine Specific [place] 1.009 Urine Protein NEG mg/dL Urine Glucose (UA) NEG mg/dL Urine Ketones 10 mg/dL Urine Occult Blood NEG Urine Nitrite NEG Urine Bilirubin NEG Urine Urobilinogen LESS THAN 2.0 MG/DL Urine Leukocyte Esterase NEG Urine Squamous Epithelial Cells 13 /hpf Urine Bacteria MOD /hpf Microscopic Urinalysis Comment CULTURE INDICATED Blood Urea Nitrogen 16 MG/DL Creatinine 0.81 MG/DL Random Glucose 93 MG/DL Total Protein 7.4 GM/DL Albumin 3.6 GM/DL Calcium Level 8.9 MG/DL Alkaline Phosphatase 73 U/L Aspartate Amino Transf (AST/SGOT) 76 U/L Alanine Aminotransferase (ALT/SGPT) 27 U/L Total Bilirubin 0.4 MG/DL Sodium Level 132 MEQ/L Potassium Level 3.3 MEQ/L Chloride Level 97 MEQ/L Carbon Dioxide Level 24.9 MEQ/L Anion Gap 10 MEQ/L Estimat Glomerular Filtration Rate 79 ML/MIN Thyroid Stimulating Hormone 3rd Gen 0.300 uIU/ML Salicylates Level 3.1 MG/DL Urine Opiates Screen POS Acetaminophen Level LESS THAN 2.0 MCG/ML Urine Barbiturates Screen NEG Urine Amphetamines Screen POS Urine Benzodiazepines Screen NEG Urine Cocaine Screen POS Urine Cannabinoids Screen NEG Ethyl Alcohol Level LESS THAN 3 MG/DL MDM Medical Record Reviewed: Yes Supervised Visit with ZACH: Yes Narrative Course 37-year-old this patient previously Junior acted and medically cleared for psychiatric evaluation. During medical clearance patient was found to have a urinary tract infection. Patient has been seen by psychiatric services and deemed psychiatrically stable for discharge at this time. Patient is given a prescription for Keflex 500 mg 3 times daily for 7 days for her UTI. Urine culture is pending. Follow-up will be determined by psychiatric note. Diagnosis Primary Impression: MEDICALLY CLEARED Additional Impressions: POLYSUBSTANCE USE UTI Patient Instructions: General Instructions, Urinary Tract Infection in Women ( ED), Polysubstance Abuse (ED), Medical Clearance for Psychiatric Care (ED) Departure Forms: Tests/Procedures Additional Instruction: Follow up with primary care physician. Follow up with [facility] as soon as possible. Return to [facility] or nearest ED if symptoms worsen or persist. Med/Other Pt SpecificInfo: Prescription(s) given Scripts Cephalexin (Keflex) 500 Mg Cap 500 MG PO Q8H for Infection for 7 Days, #21 CAP 0 Refills Prov: Av Jaimes MD 12/29/17 Disposition: 01 DISCHARGE HOME Condition: Stable Dougie Teague Dec 29, 2017 15:50
== END 2017-12-29 16:09 | disposition home or self-care (01) ==
LOC: NEPD 17:52 → NEPJ 12-29 16:09
DX: F11.10 Opioid abuse, uncomplicated (principal); F14.10 Cocaine abuse, uncomplicated; F15.10 Other stimulant abuse, uncomplicated; F17.200 Nicotine dependence, unspecified, uncomplicated; N39.0 Urinary tract infection, site not specified; K21.9 Gastro-esophageal reflux disease without esophagitis; Z79.899 Other long term (current) drug therapy
CPT/HCPCS: 80053; 80307; 81001; 84443; 85025; 87086; 99283

== ENCOUNTER 2018-09-07 08:11 | Observation (INO) ==
[2018-09-07] MEDS ORDERED: Sod Chloride 0.9% Inj 1,000 ML IV.SIG SCH ×2 (09:15→15:30)
[2018-09-07] MEDS ORDERED: Ketorolac Inj 30 MG/ML (IVP) Vial IV.PUSH ONE (09:15)
--- NOTE | 2018-09-07 09:29 | ED ---
HPI General Chief complaint: Headache Stated complaint: headache Time Seen by Provider: 09/07/18 09:01 Source: patient Mode of arrival: ambulatory Limitations: no limitations History of Present Illness HPI narrative: 38yo F with PMH of fibromyalgia, bipolar disorder, polysubstance abuse here with multiple complaints today. Said she has not felt well for 1 week. Said she has blood in her urine but it may just be dark. Also with a week of diffuse headache. +N/V. Denies any fever, neck pain, visual changes, chest pain, sob, abdominal pain, focal weakness or numbness. Pt admits to IVDA. Said she lives in [facility] but is still using drugs. Denies any suicidal or homicidal ideations. Related Data Home Medications Medication Instructions Recorded Confirmed aripiprazole [Abilify] 10 mg PO HS 09/07/18 09/07/18 brexpiprazole [Rexulti] 2 mg PO DAILY 09/08/18 09/08/18 gabapentin 300 mg PO TID 09/08/18 09/08/18 prazosin HS 09/08/18 Allergies Allergy/AdvReac Type Severity Reaction Status Date / Time No Known Drug Allergies Allergy unknown Verified 09/07/18 09:01 *MDRO Multi-Drug Resistant AdvReac Unknown unknown Uncoded 09/07/18 09:01 Organism Review of Systems ROS: all other systems reviewed are negative [facility] Medical History Medical History Drug abuse and dependence (Acute) Hx of psychiatric care (Acute) No significant medical problems (Acute) No significant past surgical history (Acute) Anxiety (Chronic) Fibromyalgia (Chronic) Family History Family History Other Family history normal Social History Social History Substance History: Active Abuse Second Hand Smoke Exposure: Yes Smoking Status: Heavy tobacco smoker Tobacco Type: Cigarettes How Often Do You Have a Drink Containing Alcohol: Monthly or less Recent Travel in [facility] within the Last 8 Weeks: No Recent Out of Country Travel within the Last 8 Weeks: No Substance Abuse Detail Heroin: Route Used Substance Abuse: Intravenously Methamphetamine: Route Used Substance Abuse: Intravenously Crack/Cocaine: Route Used Substance Abuse: Inhalation Last Used: today Immunization History Tetanus Immunization: Unsure Exam Narrative Exam Narrative: GENERAL: 38yo F not in distress. SKIN: Focused skin assessment warm/dry. HEAD: Atraumatic. Normocephalic. EYES: Pupils equal and round at 4mm bilaterally. EOMI. ENT: No nasal bleeding or discharge. NECK: No nuchal rigidity. CARDIOVASCULAR: Regular rate and rhythm. No murmur appreciated. RESPIRATORY: No accessory muscle use. Clear to auscultation. Breath sounds equal bilaterally. GASTROINTESTINAL: Abdomen soft, mild suprapubic ttp. No rebound tenderness or guarding. MUSCULOSKELETAL: No obvious deformities. No clubbing. No cyanosis. No edema. NEUROLOGICAL: Awake and alert. No obvious cranial nerve deficits. Motor grossly within normal limits in all extremities. Sensation equal bilaterally. Normal speech. PSYCHIATRIC: Appropriate mood and affect; insight and judgment normal. Course Initial Documented Vital Signs Temperature 97.0 F L 09/07/18 08:18 Pulse Rate 83 09/07/18 08:18 Respiratory Rate 16 09/07/18 08:18 Blood Pressure 94/54 L 09/07/18 08:18 Pulse Oximetry 97 09/07/18 08:18 Last Documented Vital Signs Temperature 97.9 F 09/08/18 08:00 Pulse Rate 68 09/08/18 08:00 Respiratory Rate 14 09/08/18 08:00 Blood Pressure 108/70 09/08/18 08:00 Pulse Oximetry 99 09/08/18 08:00 Medical Decision Making MDM Narrative Medical decision making narrative: 38yo F with bipolar and fibromyalgia here with multiple complaints. Pt is very well appearing and has no focal neurologic deficits. Urine does appear to be dark, will check CPK. Pt has mild wheezing on exam but denies any sob or chest pain. Did not want treatment , likely chronic wheezing from chronic smoking. Labs reviewed, WBC is low at 2.9. H/H normal. BMP unremarkable. Glucose mildly decreased at 68, pt given food. CXR negative. LFTs markedly elevated at 4358/3614 AST /ALT. Elevated bilirubin. Pt has no abdominal pain. Feel that this is likely viral hepatitis. Headache improved after medication. Discussed with GI Dr. Anderson and he recommended hydration and observation. Medical Screen Exam Complete: Yes Emergency Medical Condition: Yes Differential Diagnosis Differential Diagnosis: Rhabdomyolysis vs. dehydration vs. electrolyte abnormality vs. UTI vs. migraine headache vs. malingering Lab Data Result diagrams: 09/07/18 09:15 09/08/18 06:33 POC Results POC Urine Results Negative Lab Results 09/07/18 09/07/18 09/07/18 Range/Units 09:15 09:15 09:15 WBC 2.9 L (4.0-11.0) th/mm3 RBC 4.91 (4.00-5.30) mil/mm3 Hgb 13.8 (11.6-15.3) gm/dL Hct 41.3 (35.0-46.0) % MCV 84.1 (80.0-100.0) fL MCH 28.1 (27.0-34.0) pg MCHC 33.4 (32.0-36.0) % RDW 17.6 H (11.6-17.2) % Plt Count 163 (150-450) th/mm3 MPV 10.4 (7.0-11.0) fL Neut % (Auto) 49.0 (16.0-70.0) % Lymph % (Auto) 33.7 (9.0-44.0) % [place] % (Auto) 14.2 H (0.0-8.0) % Eos % (Auto) 2.3 (0.0-4.0) % Baso % (Auto) 0.8 (0.0-2.0) % Neut # (Auto) 1.4 L (1.8-7.7) th/mm3 Lymph # (Auto) 1.0 (1.0-4.8) th/mm3 [place] # (Auto) 0.4 (0.0-0.9) th/mm3 Eos # (Auto) 0.1 (0.0-0.4) th/mm3 Baso # (Auto) 0.0 (0.0-0.2) th/mm3 WBC Differential . Differential Comment Auto diff final Sodium (136-145) meq/L Potassium (3.5-5.1) meq/L Chloride (98-107) meq/L Carbon Dioxide (21.0-32.0) meq/L Anion Gap (5-15) meq/L BUN (7-18) mg/dL Creatinine (0.50-1.00) mg/dL Estimated GFR (>89) mL/min Random Glucose (74-106) mg/dL Calcium (8.5-10.1) mg/dL Total Bilirubin (0.2-1.0) mg/dL Direct Bilirubin (0.0-0.2) mg/dL Indirect Bilirubin (0.0-0.8) mg/dL AST (15-37) U/L ALT (10-53) U/L Alkaline Phosphatase (45-117) U/L Total Creatine Kinase (26-192) U/L Total Protein (6.4-8.2) g/dL Albumin (3.4-5.0) g/dL Urine Color [place] (Yellw/Straw) Urine Clarity Hazy H (Clear) Urine pH 6.0 (5.0-8.5) Ur Specific [place] 1.014 (1.002-1.035) Urine Protein 30 H (Neg-Trace) mg/dL Urine Glucose (UA) Negative (Negative) mg/dL Urine Ketones Negative (Negative) mg/dL Urine Occult Blood Large H (Negative) Urine Nitrate Negative (Negative) Urine Bilirubin Small H (Negative) Urine Ictotest Positive H (Negative) Urine Urobilinogen 4 or greater (Less than 2) mg/dL Ur Leukocyte Esterase Trace H (Negative) Urine RBC 3 (0-3) /hpf Urine WBC 6 H (0-5) /hpf Ur Squamous Epith Cells 11 (0-5) /hpf Urine Bacteria Rare H (None) /hpf Urine Mucus Few H (Occasional) /lpf Micro UA Comment Culture not ind Ur Microscopic Review Not Reportable Urine Culture Comments Culture not ind Urine Opiates Screen Neg (Neg) Ur Barbiturates Screen Neg (Neg) Ur Amphetamines Screen Neg (Neg) U Benzodiazepines Scrn Neg (Neg) Urine Cocaine Screen Pos H (Neg) U Cannabinoids Screen Neg (Neg) Hepatitis A IgM Ab (Nonreactive) Hep Bs Antigen (Nonreactive) Hep B Core IgM Ab (Nonreactive) Hep C IgG Ab (Nonreactive) HIV 1&2 Ab/P24 Ag 4thGn (Nonreactive) 09/07/18 09/07/18 09/08/18 Range/Units 12:35 12:35 06:33 WBC (4.0-11.0) th/mm3 RBC (4.00-5.30) mil/mm3 Hgb (11.6-15.3) gm/dL Hct (35.0-46.0) % MCV (80.0-100.0) fL MCH (27.0-34.0) pg MCHC (32.0-36.0) % RDW (11.6-17.2) % Plt Count (150-450) th/mm3 MPV (7.0-11.0) fL Neut % (Auto) (16.0-70.0) % Lymph % (Auto) (9.0-44.0) % [place] % (Auto) (0.0-8.0) % Eos % (Auto) (0.0-4.0) % Baso % (Auto) (0.0-2.0) % Neut # (Auto) (1.8-7.7) th/mm3 Lymph # (Auto) (1.0-4.8) th/mm3 [place] # (Auto) (0.0-0.9) th/mm3 Eos # (Auto) (0.0-0.4) th/mm3 Baso # (Auto) (0.0-0.2) th/mm3 WBC Differential Differential Comment Sodium 137 (136-145) meq/L Potassium 3.9 (3.5-5.1) meq/L Chloride 104 (98-107) meq/L Carbon Dioxide 27.0 (21.0-32.0) meq/L Anion Gap 6 (5-15) meq/L BUN 5 L (7-18) mg/dL Creatinine 0.79 (0.50-1.00) mg/dL Estimated GFR 81 L (>89) mL/min Random Glucose 68 L (74-106) mg/dL Calcium 7.7 L (8.5-10.1) mg/dL Total Bilirubin 3.0 H (0.2-1.0) mg/dL Direct Bilirubin 2.1 H (0.0-0.2) mg/dL Indirect Bilirubin 0.9 H (0.0-0.8) mg/dL AST 4358 H (15-37) U/L ALT 3614 H (10-53) U/L Alkaline Phosphatase 331 H (45-117) U/L Total Creatine Kinase 58 (26-192) U/L Total Protein 7.3 (6.4-8.2) g/dL Albumin 2.7 L (3.4-5.0) g/dL Urine Color (Yellw/Straw) Urine Clarity (Clear) Urine pH (5.0-8.5) Ur Specific [place] (1.002-1.035) Urine Protein (Neg-Trace) mg/dL Urine Glucose (UA) (Negative) mg/dL Urine Ketones (Negative) mg/dL Urine Occult Blood (Negative) Urine Nitrate (Negative) Urine Bilirubin (Negative) Urine Ictotest (Negative) Urine Urobilinogen (Less than 2) mg/dL Ur Leukocyte Esterase (Negative) Urine RBC (0-3) /hpf Urine WBC (0-5) /hpf Ur Squamous Epith Cells (0-5) /hpf Urine Bacteria (None) /hpf Urine Mucus (Occasional) /lpf Micro UA Comment Ur Microscopic Review Urine Culture Comments Urine Opiates Screen (Neg) Ur Barbiturates Screen (Neg) Ur Amphetamines Screen (Neg) U Benzodiazepines Scrn (Neg) Urine Cocaine Screen (Neg) U Cannabinoids Screen (Neg) Hepatitis A IgM Ab Reactive H (Nonreactive) Hep Bs Antigen Nonreactive (Nonreactive) Hep B Core IgM Ab Nonreactive (Nonreactive) Hep C IgG Ab Reactive H (Nonreactive) HIV 1&2 Ab/P24 Ag 4thGn (Nonreactive) 09/08/18 09/08/18 Range/Units 06:33 06:33 WBC (4.0-11.0) th/mm3 RBC (4.00-5.30) mil/mm3 Hgb (11.6-15.3) gm/dL Hct (35.0-46.0) % MCV (80.0-100.0) fL MCH (27.0-34.0) pg MCHC (32.0-36.0) % RDW (11.6-17.2) % Plt Count (150-450) th/mm3 MPV (7.0-11.0) fL Neut % (Auto) (16.0-70.0) % Lymph % (Auto) (9.0-44.0) % [place] % (Auto) (0.0-8.0) % Eos % (Auto) (0.0-4.0) % Baso % (Auto) (0.0-2.0) % Neut # (Auto) (1.8-7.7) th/mm3 Lymph # (Auto) (1.0-4.8) th/mm3 [place] # (Auto) (0.0-0.9) th/mm3 Eos # (Auto) (0.0-0.4) th/mm3 Baso # (Auto) (0.0-0.2) th/mm3 WBC Differential Differential Comment Sodium 141 (136-145) meq/L Potassium 3.7 (3.5-5.1) meq/L Chloride 111 H (98-107) meq/L Carbon Dioxide 22.7 (21.0-32.0) meq/L Anion Gap 7 (5-15) meq/L BUN 5 L (7-18) mg/dL Creatinine 0.69 (0.50-1.00) mg/dL Estimated GFR (>89) mL/min Random Glucose 99 (74-106) mg/dL Calcium 7.9 L (8.5-10.1) mg/dL Total Bilirubin 3.5 H (0.2-1.0) mg/dL Direct Bilirubin (0.0-0.2) mg/dL Indirect Bilirubin (0.0-0.8) mg/dL AST 1774 H (15-37) U/L ALT 2443 H (10-53) U/L Alkaline Phosphatase 265 H (45-117) U/L Total Creatine Kinase (26-192) U/L Total Protein 6.4 D (6.4-8.2) g/dL Albumin 2.4 L (3.4-5.0) g/dL Urine Color (Yellw/Straw) Urine Clarity (Clear) Urine pH (5.0-8.5) Ur Specific [place] (1.002-1.035) Urine Protein (Neg-Trace) mg/dL Urine Glucose (UA) (Negative) mg/dL Urine Ketones (Negative) mg/dL Urine Occult Blood (Negative) Urine Nitrate (Negative) Urine Bilirubin (Negative) Urine Ictotest (Negative) Urine Urobilinogen (Less than 2) mg/dL Ur Leukocyte Esterase (Negative) Urine RBC (0-3) /hpf Urine WBC (0-5) /hpf Ur Squamous Epith Cells (0-5) /hpf Urine Bacteria (None) /hpf Urine Mucus (Occasional) /lpf Micro UA Comment Ur Microscopic Review Urine Culture Comments Urine Opiates Screen (Neg) Ur Barbiturates Screen (Neg) Ur Amphetamines Screen (Neg) U Benzodiazepines Scrn (Neg) Urine Cocaine Screen (Neg) U Cannabinoids Screen (Neg) Hepatitis A IgM Ab (Nonreactive) Hep Bs Antigen (Nonreactive) Hep B Core IgM Ab (Nonreactive) Hep C IgG Ab (Nonreactive) HIV 1&2 Ab/P24 Ag 4thGn Nonreactive (Nonreactive) Imaging Data Radiologist's impression: Chest X-Ray 09/07/18 09:29 CONCLUSION: Negative examination. Discharge Plan Discharge Disposition Patient Disposition: 30 Still Patient Discharge Condition Condition: Stable Discharge Order Discharge Orders: Discharge Order (Routine); Ordered 09/08/18 Ordered By: Devorah Frank Discharge Details Diagnosis: Elevated liver enzymes Physicians Team ED Provider: Andressa Mccord Primary Care Provider: Primary Care Richa Gonzalez Attending Provider: Scott Javed Status ED Status: Left Department Discharge Information Discharge Date/Time: 09/07/18 18:07
--- NOTE | 2018-09-07 10:04 | XR ---
EXAM DATE: 09/07/2018 9:56 AM EST AGE/SEX: 38 years / Female INDICATIONS: Weakness, cough, fever x1 week. CLINICAL DATA: This is the patient's initial encounter. Patient reports that signs and symptoms have been present for 1 day and indicates a pain score of 1/10. MEDICAL/SURGICAL HISTORY: None. None. COMPARISON: No prior exams available for comparison. FINDINGS: A single AP view of the chest demonstrates the lungs to be symmetrically aerated without evidence of mass, infiltrate or effusion. The cardiomediastinal contours are unremarkable. Osseous structures a re intact. CONCLUSION: Negative examination. Electronically signed by: Fabrizio Bernard MD 09/07/2018 10:03 AM EST
[2018-09-07 10:37] LABS: Bacteria,Urine Rare /hpf; Bilirubin,Urine Small (Negative); Clarity,Urine Hazy (Clear); Color,Urine Amber (Yellw/Straw); Glucose,Urine (UA) Negative (Negative); Leukocyte Esterase,Urine Trace (Negative); Mucus,Urine Few /lpf (Occasional); Nitrite,Urine Negative (Negative); Specific Gravity,Urine 1.014 (1.002-1.035); Squamous Epithelial Cell,Urine 11 /hpf (0-5); Urobilinogen,Urine 4 or Greater mg/dL (Less than 2)
[2018-09-07 10:38] LABS: Ictotest,Urine Positive (Negative)
[2018-09-07 10:41] LABS: Baso % (Auto) 0.8 % (0.0-2.0); Eos # (Auto) 0.1 th/mm3 (0.0-0.4); Eos % (Auto) 2.3 % (0.0-4.0); Hematocrit 41.3 % (35.0-46.0); Hemoglobin 13.8 gm/dL (11.6-15.3); Lymph % (Auto) 33.7 % (9.0-44.0); Mean Corpuscular HGB Conc 33.4 % (32.0-36.0); Mean Corpuscular Hemoglobin 28.1 pg (27.0-34.0); Mean Corpuscular Volume 84.1 fL (80.0-100.0); Mean Platelet Volume 10.4 fL (7.0-11.0); Mono # (Auto) 0.4 th/mm3 (0.0-0.9); Mono % (Auto) 14.2 % (0.0-8.0); Neut # (Auto) 1.4 th/mm3 (1.8-7.7); Platelet Count 163 th/mm3 (150-450); Red Blood Count 4.91 mil/mm3 (4.00-5.30); Red Cell Distribution Width 17.6 % (11.6-17.2); White Blood Count 2.9 th/mm3 (4.0-11.0)
[2018-09-07] MEDS ORDERED: guaiFENesin/Dextromethorphan 200 MG/20 MG 10 ML UDC PO ONE (13:26)
[2018-09-07 13:27] LABS: Calcium 7.7 mg/dL (8.5-10.1); Potassium 3.9 meq/L (3.5-5.1)
[2018-09-07 15:01] LABS: Albumin 2.7 g/dL (3.4-5.0); Total Protein 7.3 g/dL (6.4-8.2)
[2018-09-07] MEDS ORDERED: Bisacodyl 10 MG Supp RECTAL PRN (16:16)
--- NOTE | 2018-09-07 17:22 | P.HPIM ---
History of Present Illness Primary Care Physician: No Primary Care Physician Chief Complaint: I do not feel well. History of Present Illness: 38-year-old white female with a history of fibromyalgia, bipolar disorder with anxiety, active polysubstance abuse presents to the emergency room with 1 week history of not feeling well with symptoms of increased fatigue, poor appetite, and now having increased dark urine production. She denies any associated abdominal pain with the symptoms. Earlier today she had a headache however that has resolved now that she is able to eat some food. She is not complaining of associated nausea and vomiting she has not had any symptoms of constipation or diarrhea. There has not been any changes in her stools. Of note, patient uses IV methamphetamines, IV heroin, smoked crack cocaine on a daily basis. She denies a history of hepatitis or HIV. Review of Systems Constitutional: Reports as per HPI, Denies body ache(s), Denies chills, Reports fatigue, Denies fever(s), Reports headache(s), Reports malaise, Denies night sweats and Reports poor appetite Eyes: Denies blurry vision, Denies change in vision and Denies eye pain Ears, Nose, Mouth, and Throat: Denies abnormal hearing, Denies headache(s), Denies mouth pain, Denies nasal congestion, Denies neck pain and Denies sore throat Cardiovascular: Denies chest pain, Denies pedal edema, Denies palpitations and Denies dyspnea Respiratory: Denies cough and Denies dyspnea Gastrointestinal: Denies abdominal pain, Denies constipation, Denies loose stools, Denies nausea and Denies vomiting Genitourinary: Denies urinary frequency, Denies flank pain and Reports urinary urgency Musculoskeletal: Denies back pain, Denies myalgias, Denies arthralgias, Denies neck pain and Denies numbness Skin/Breast: Denies new lesions and Denies rash Neurologic: Denies abnormal hearing, Denies headache(s), Denies focal weakness, Denies memory loss and Denies numbness Psychiatric: Reports anxiety, Denies depression, Denies memory loss, Denies homicidal ideation and Denies suicidal ideation Endocrine: Denies cold intolerance, Denies heat intolerance and Denies palpitations Hematologic/Lymphatic: Denies easy bleeding and Denies easy bruising PMFSH Medical History Medical History Drug abuse and dependence (Acute) Hx of psychiatric care (Acute) No significant medical problems (Acute) No significant past surgical history (Acute) Anxiety (Chronic) Fibromyalgia (Chronic) Family History Family History Other Family history normal Social History Social History Substance History: Active Abuse Second Hand Smoke Exposure: Yes Smoking Status: Current every day smoker Tobacco Type: Cigarettes How Often Do You Have a Drink Containing Alcohol: 2 to 3 times a week Recent Travel in [facility] within the Last 8 Weeks: No Recent Out of Country Travel within the Last 8 Weeks: No Substance Abuse Detail Heroin: Route Used Substance Abuse: Intravenously Methamphetamine: Route Used Substance Abuse: Intravenously Crack/Cocaine: Route Used Substance Abuse: Inhalation Last Used: today Immunization History Tetanus Immunization: Unsure Medications and Allergies Allergies Allergy/AdvReac Type Severity Reaction Status Date / Time No Known Drug Allergies Allergy unknown Verified 09/07/18 09:01 *MDRO Multi-Drug Resistant AdvReac Unknown unknown Uncoded 09/07/18 09:01 Organism Home Medications Medication Instructions Recorded Confirmed Type aripiprazole [Abilify] 10 mg PO HS 09/07/18 09/07/18 History Active Medications: Active Medications Al Hydroxide/Mg Hydroxide (Milk Of Magnesia Liq) 30 ml PO Q12H PRN PRN Reason: Mild Constipation Bisacodyl (Dulcolax Supp) 10 mg RECTAL DAILY PRN PRN Reason: SEVERE CONSITIPATION Sodium Chloride (Ns Inj) 1,000 mls @ 100 mls/hr IV.CONT .Q10H JOVITA Lactulose (Lactulose Liq) 30 ml PO DAILY PRN PRN Reason: SEVERE CONSITIPATION Ondansetron HCl (Zofran Inj) 4 mg IV.PUSH Q6H PRN PRN Reason: NAUSEA OR VOMITING Sennosides (Senokot) 17.2 mg PO Q12H PRN PRN Reason: Moderate Constipation Sodium Chloride (Ns Flush) 2 ml IV.FLUSH BID JOVITA Sodium Chloride (Ns Flush) 2 ml IV.FLUSH PRN PRN PRN Reason: FLUSH AFTER USING IV ACCESS Physical Exam Vital signs: Last Vital Signs Temp 98.3 F 09/07/18 14:45 Pulse 83 09/07/18 14:45 Resp 18 09/07/18 14:45 BP 121/63 09/07/18 14:45 Pulse Ox 97 09/07/18 14:45 Intake & Output 09/05/18 09/06/18 09/07/18 09/08/18 06:59 06:59 06:59 06:59 Intake Total 1000 / 1000 Balance 1000 / 1000 Weight 61.235 kg Narrative: GENERAL: Well-nourished well-developed white female no acute distress SKIN: Warm and dry. No jaundice. Track [place] on the bilateral anterior cubital forearm area HEAD: Atraumatic. Normocephalic. EYES: Pupils equal and round. No scleral icterus. No injection or drainage. ENT: No nasal bleeding or discharge. Mucous membranes pink and moist. NECK: Trachea midline. No JVD. CARDIOVASCULAR: Regular rate and rhythm. RESPIRATORY: No accessory muscle use. Clear to auscultation. Breath sounds equal bilaterally. GASTROINTESTINAL: Abdomen soft, non-tender, nondistended. Hepatic and splenic margins not palpable. Normoactive bowel sounds MUSCULOSKELETAL: Extremities without clubbing, cyanosis, or edema. No obvious deformities. NEUROLOGICAL: Awake and alert to person place. No obvious cranial nerve deficits. Motor grossly within normal limits. Five out of 5 muscle strength in the arms and legs. Normal speech. PSYCHIATRIC: Appropriate mood and affect; insight and judgment normal. Results Labs CBC & Chem 7: 09/07/18 09:15 09/07/18 12:35 Imaging Impressions Chest X-Ray 09/07/18 09:29 CONCLUSION: Negative examination. Caprini VTE Risk Assessment Caprini VTE Risk Assessment: No/Low Risk (score <= 1) Caprini Risk Assessment Model: Point Value = 1 Point Value = 2 Point Value = 3 Point Value = 5 Age 41-60 Minor surgery BMI > 25 kg/m2 Swollen legs Varicose veins or History of unexplained or recurrent spontaneous Oral contraceptives or hormone replacement Sepsis (< 1 month) Serious lung disease, including pneumonia (< 1 month) Abnormal pulmonary function Acute myocardial infarction Congestive heart failure (< 1 month) History of inflammatory bowel disease Medical patient at bed rest Age 61-74 Arthroscopic surgery Major open surgery (> 45 min) Laparoscopic surgery (> 45 min) Malignancy Confined to bed (> 72 hours) Immobilizing plaster cast Central venous access Age >= 75 History of VTE Family history of VTE Factor V Leiden Prothrombin [id number] Lupus anticoagulant Anticardiolipin antibodies Elevated serum homocysteine Heparin-induced thrombocytopenia Other congenital or acquired thrombophilia Stroke (< 1 month) Elective arthroplasty Hip, pelvis, or leg fracture Acute spinal cord injury (< 1 month) Prophylaxis Regimen: Total Risk Factor Score Risk Level Prophylaxis Regimen 0-1 Low Early ambulation 2 Moderate Order ONE of the following: *Sequential Compression Device (SCD) *Heparin 5000 units SQ BID 3-4 Higher Order ONE of the following medications: *Heparin 5000 units SQ TID *Enoxaparin/Lovenox 40 mg SQ daily (WT < 150 kg, CrCl > 30 mL/min) *Enoxaparin/Lovenox 30 mg SQ daily (WT < 150 kg, CrCl > 10-29 mL/min) *Enoxaparin/Lovenox 30 mg SQ BID (WT < 150 kg, CrCl > 30 mL/min) AND/OR *Sequential Compression Device (SCD) 5 or more Highest Order ONE of the following medications: *Heparin 5000 units SQ TID (Preferred with Epidurals) *Enoxaparin/Lovenox 40 mg SQ daily (WT < 150 kg, CrCl > 30 mL/min) *Enoxaparin/Lovenox 30 mg SQ daily (WT < 150 kg, CrCl > 10-29 mL/min) *Enoxaparin/Lovenox 30 mg SQ BID (WT < 150 kg, CrCl > 30 mL/min) AND *Sequential Compression Device (SCD) Assessment and Plan Plan 38-year-old white female with a history of IV drug abuse presents with 1 week history of fatigue and dark urine 1. Elevated transaminitis - Likely due to IV drug abuse with no symptoms of abdominal pain. Placed on observation. Trend enzymes, supportive care with IV fluid hydration. Check hepatitis panel and HIV. If levels continue to trend up consider further evaluation with GI consult. 2. Presenting hypoglycemiathis should resolve now that patient is tolerating p.o. and able to complete her meal tray. 3. IV substance abusepatient counseled will refer to detox treatment, [facility] upon discharge. 4. History of anxiety, bipolarresume home Abilify and follow-up with outpatient psychiatry.
[2018-09-07] MEDS: Sod Chloride 0.9% Inj 1,000 ML IV.CONT SCH (18:39)
[2018-09-07 22:39] LABS: Amphetamine Screen,Urine Neg (Neg); Barbiturate Screen,Urine Neg (Neg); Cannabinoid Screen,Urine Neg (Neg); Cocaine Screen,Urine Pos (Neg)
[2018-09-07 23:03] LABS: Opiate Screen,Urine Neg (Neg)
[2018-09-08] MEDS: Sod Chloride 0.9% Inj 1,000 ML IV.CONT SCH (04:34)
[2018-09-08 07:27] LABS: Albumin 2.4 g/dL (3.4-5.0); Anion Gap 7 meq/L (5-15); Blood Urea Nitrogen 5 mg/dL (7-18); Calcium 7.9 mg/dL (8.5-10.1); Carbon Dioxide 22.7 meq/L (21.0-32.0); Chloride 111 meq/L (98-107); Glucose,Random 99 mg/dL (74-106); Potassium 3.7 meq/L (3.5-5.1); Sodium 141 meq/L (136-145)
[2018-09-08 07:36] LABS: Alanine Aminotransferase 2443 U/L (10-53); Alkaline Phosphatase 265 U/L (45-117); Aspartate Aminotransferase 1774 U/L (15-37); Total Protein 6.4 g/dL (6.4-8.2)
[2018-09-08 07:59] LABS: Hepatitits B Surface Antigen Nonreactive (Nonreactive)
[2018-09-08 08:18] LABS: Hepatitis A IgM Antibody Reactive (Nonreactive)
[2018-09-08 08:19] VITALS: BP 108/70; PULSE 68; RESP 14; TEMP 97.9; O2SAT 99
--- NOTE | 2018-09-08 11:29 | P.PNIM ---
Subjective Interval history: Patient wanting to know results regarding hepatitis profile Patient reports feeling better at this time able to tolerate PO intake Physical Exam Vital signs: Last Vital Signs Temp 97.9 F 09/08/18 08:00 Pulse 68 09/08/18 08:00 Resp 14 09/08/18 08:00 BP 108/70 09/08/18 08:00 Pulse Ox 99 09/08/18 08:00 Narrative: GENERAL: This is a well-nourished, well-developed patient, in no apparent distress. CARDIOVASCULAR: Regular rate and rhythm without murmurs, gallops, or rubs. RESPIRATORY: Clear to auscultation. Breath sounds equal bilaterally. No wheezes , rales, or rhonchi. GASTROINTESTINAL: Abdomen soft, non-tender, nondistended. Normal active bowel sounds MUSCULOSKELETAL: Extremities without clubbing, cyanosis, or edema. NEURO: Alert & Oriented x4 to person, place, time, situation. Moves all ext x4 Results Labs CBC & Chem 7: 09/07/18 09:15 09/08/18 06:33 Assessment and Plan Plan 38-year-old white female with a history of IV drug abuse presents with 1 week history of fatigue and dark urine 1. Elevated transaminitis - Placed on observation. Trend enzymes, supportive care with IV fluid hydration. Check hepatitis panel and HIV. positive for hepatitis A IgM and C IgG. Dr. Javed discussed the results with patient and her father who is at bedside. Patient no longer wishes to stay in the hospital. 2. Presenting hypoglycemiaresolved now that patient is tolerating p.o. and able to complete her meal tray. 3. IV substance abusepatient counseled will refer to detox treatment, patient to continue [facility]. 4. History of anxiety, bipolarresume home Abilify and follow-up with outpatient psychiatry. DC patient home in stable condition on a regular diet with no activity restrictions. Patient to follow up with PCP, [facility] and Dr. Camilo Progress Note: Quality VTE Deep Vein Thrombosis/Pulmonary Embolism Present on Admission: No
== END 2018-09-08 11:45 | disposition home or self-care (01) ==
LOC: NEPC 08:11 → NEDA 08:11 → NEPGCP 18:02
PROVIDERS: ADMIT Hospitalist; ATTEND Hospitalist